=== PATIENT | female | born 1990 | race Caucasian/White ===

== ENCOUNTER 2020-03-15 00:38 | Emergency (ER) | payer OTHER, MEDICAID, SELFPAY ==
[2020-03-15 00:54] VITALS: BP 185/91; PULSE 96; RESP 18; TEMP 36.8; O2SAT 98; BMI 26.6
[2020-03-15] MEDS: SODIUM CHLORIDE 0.9% 1,000 ML 1000 ML IV (01:24)
[2020-03-15] MEDS: diphenhydrAMINE 50 MG/ML VIAL 25 MG IV (01:25)
[2020-03-15] MEDS: KETOROLAC 60 MG/2 ML VIAL 15 MG IV (01:30)
[2020-03-15] MEDS: DEXAMETHASONE 10 MG/ML VIAL IV (01:32)
[2020-03-15] MEDS: METOCLOPRAMIDE 10 MG/2 ML INJ IV (01:40)
--- NOTE | 2020-03-15 01:55 | ED_ITS ---
HPI - Headache General Chief Complaint: Headache Stated Complaint: migraine since yesterday Time Seen by Provider: 03/15/20 00:40 Source: family Mode of arrival: Ambulatory Limitations: no limitations History of Present Illness HPI Narrative: 29F nonsmoker with history of migraines presents with her mother and a chief complaint of a migraine since this afternoon with associated nausea. She states is very similar to prior migraines and she likely would not be here if she had access to her Imitrex which she normally takes. She denies any injury nor recent fever or chills. She is nauseated but denies vomiting. She states that she has minimal worsening with bright lights and loud noise. She denies any focal neurologic problems such as numbness, tingling or weakness MD Complaint: migraine Onset (ago): hour(s) Onset description: gradual Location: left Severity: moderate Quality: aching and throbbing Relieving factors: nothing Context: occurred at rest Associated symptoms: nausea Treatments prior to arrival: none Related Data Allergies Allergy/AdvReac Type Severity Reaction Status Date / Time Allergy Mild rash Uncoded 01/16/18 12:29 Review of Systems Constitutional Constitutional: Denies chills, Denies fatigue, Denies fever(s), Denies frequent falls, Reports headache(s), Denies lethargy and Denies weakness Eyes Eyes: Denies change in vision, Denies eye discharge, Denies irritation and Denies loss of vision ENT Ears, Nose, Mouth, and Throat: Denies change in voice, Denies dizziness, Reports headache(s), Denies neck pain, Denies sore throat and Denies throat swelling Cardiovascular Cardiovascular: Denies chest pain, Denies irregular heart rhythm, Denies lightheadedness, Denies palpitations, Denies dyspnea, Denies dyspnea on exertion and Denies orthopnea Respiratory Respiratory: Denies cough, Denies dyspnea, Denies dyspnea on exertion and Denies wheezing Gastrointestinal Gastrointestinal: Denies abdominal pain, Denies change in bowel habits, Denies diarrhea, Denies nausea and Denies vomiting Musculoskeletal Musculoskeletal: Denies neck pain and Denies numbness Integumentary/Breasts Skin/Breast: Denies pruritus, Denies erythema, Denies rash and Denies wounds Neurologic Neurologic: Denies behavioral changes, Denies confusion, Denies dizziness, Denies frequent falls, Reports headache(s), Denies loss of vision, Denies numbness and Denies weakness Psychiatric Psychiatric: Denies anxiety, Denies behavioral changes, Denies confusion, Denies depression, Denies homicidal ideation and Denies suicidal ideation Endocrine Endocrine: Denies fatigue, Denies flushing and Denies palpitations Hematologic/Lymphatic Hematologic/Lymphatic: Denies easy bruising Allergic/Immunologic Allergic/Immunologic: Denies urticaria, Denies throat swelling and Denies wheezing Patient History Social History Smoking Status: Never smoker Smoking Status: Never smoker alcohol intake frequency: 0-2 drinks per day Substance Use Type: does not use Exam Narrative Exam Narrative: GENERAL: [29] year old patient appears stated age. Well- nourished, well-developed patient, in mild distress. HEAD: Atraumatic. Normocephalic. EYES: Pupils equal round and reactive. Extraocular motions intact. No scleral icterus. No injection or drainage. ENT: Nose without bleeding, purulent drainage. Throat without erythema, tonsillar hypertrophy or exudate. Airway patent. NECK: Trachea midline. Non tender CARDIOVASCULAR: Regular rate and rhythm without murmurs, gallops, or rubs. RESPIRATORY: Clear to auscultation. Breath sounds equal bilaterally. No wheezes, rales, or rhonchi. GASTROINTESTINAL: Abdomen soft, non-tender, nondistended. EXTREMITIES: No edema or joint tenderness. BACK: Nontender without deformity or crepitance. No flank tenderness. NEURO: AOx3. SKIN: No rash or erythema of visible areas NIH Stroke Scale 1a. LOC: Patient is alert and keenly responsive (0) 1b. LOC Questions: Patient answers both LOC questions accurately (0) 1c. LOC Commands: Patient performs both tasks correctly (0) 2. Best Gaze: Normal (0) 3. Visual: No visual loss (0) 4. Facial palsy: Normal symmetrical movements (0) 5. Motor arm: No drift (0) 6. Motor leg: No drift (0) 7. Limb ataxia: Absent (0) 8. Sensory: Normal (0) 9. Best language: No aphasia; normal (0) 10. Dysarthria: Normal (0) 11. Extinction and inattention: No abnormality (0) NIHSS: 0 Initial Vital Signs Initial Vital Signs: Vital Signs Temperature 98.2 F 03/15/20 00:54 Pulse Rate 96 H 03/15/20 00:54 Respiratory Rate 18 03/15/20 00:54 Blood Pressure 185/91 H 03/15/20 00:54 Pulse Oximetry 98 03/15/20 00:54 Course Course Course Narrative: Significant improvement in symptoms with above-stated thera piem[place]e Orders Ordered: Discontinued Medications Dexamethasone (Decadron) 10 mg IV NOW ONE Stop: 03/15/20 01:19 Last Admin: 03/15/20 01:32 Dose: 10 mg Documented by: [facility] Diphenhydramine HCl (Benadryl) 25 mg IV NOW ONE Stop: 03/15/20 01:19 Last Admin: 03/15/20 01:25 Dose: 25 mg Documented by: [facility] Sodium Chloride (Normal Saline 0.9%) 1,000 mls @ 1,000 mls/hr IV BOLUS ONE Stop: 03/15/20 02:17 Last Infusion: 03/15/20 02:29 Dose: 0 mls/hr Documented by: Admin: 03/15/20 01:24 Dose: 1,000 mls/hr Documented by: [facility] Ketorolac Tromethamine (Toradol) 15 mg IV NOW ONE Stop: 03/15/20 01:19 Last Admin: 03/15/20 01:30 Dose: 15 mg Documented by: [facility] Metoclopramide HCl (Reglan) 10 mg IV NOW ONE Stop: 03/15/20 01:19 Last Admin: 03/15/20 01:40 Dose: 10 mg Documented by: [facility] Vital Signs Vital signs: Vital Signs - 8 hr 03/15/20 00:54 Temperature 98.2 F Pulse Rate 96 H Respiratory Rate 18 Blood Pressure 185/91 H Pulse Oximetry 98 Discharge Plan Departure Patient Disposition: Home Clinical Impression: Migraine Qualifiers: Migraine type: unspecified Intractability: not intractable Discharge Date/Time: 03/15/20 02:39 Instructions: DI for Migraine Activity Restrictions/Additional Instructions: *You have been diagnosed with [acute migraine headache] *What to do: *Take medications as directed *Follow up with your primary care provider in 2-3 days, call for an appointment. Let them know you were seen in the Emergency Department and that we ask that you be seen in follow up *Return to ER if you should have any new, worsening or concerning symptoms
[2020-03-15 02:37] VITALS: BP 138/90; PULSE 89; RESP 15; O2SAT 100
== END 2020-03-15 02:39 | disposition home or self-care (01) ==
PROVIDERS: Emergency Provider Emergency Medicine
DX: G43.909 Migraine, unspecified, not intractable, without status migrainosus (principal)
CPT/HCPCS: 36415; 96361; 96374; 96375; 99284; J1100; J1200; J1885; J2765

== ENCOUNTER 2023-08-24 14:40 | Emergency (ER) | payer OTHER, MEDICAID, SELFPAY ==
[2023-08-24 14:43] VITALS: BP 157/92; PULSE 107; RESP 16; TEMP 36.7; O2SAT 100; BMI 29.7
[2023-08-24 15:26] LABS: Add Manual Diff / Slide Review NO; Basophils Absolute Auto 100 /uL (0-100); Eosinophils Absolute Auto 0 /uL (0-450); Eosinophils Percent Auto 0.1 % (2-4); Hematocrit 38.7 % (36-46); Hemoglobin 13.3 g/dL (12.0-16.0); Lymphocytes Absolute Auto 2700 /uL (1100-4500); Lymphocytes Percent Auto 25.1 % (25-40); Mean Corpuscular HGB Conc 34.5 % (30-36); Mean Corpuscular Hemoglobin 29.3 PG (26-34); Mean Corpuscular Volume 84.8 fL (80-100); Monocytes Absolute Auto 800 /uL (0-900); Monocytes Percent Auto 7.6 % (3-14); Neutrophils Absolute Auto 7200 /uL (1500-7000); Neutrophils Percent Auto 66.2 % (50-75); Platelet Count 394 X10^3/uL (150-400); Red Blood Cell Count 4.56 X10^6/uL (4.0-5.2); Red Cell Distribution Width 14.7 % (11.6-14.8); White Blood Cell Count 10.9 X10^3/uL (4.5-11.0)
[2023-08-24 15:35] LABS: Acetaminophen < 10 ug/mL (10-30); Alanine Aminotransferase 32 IU/L (<35); Albumin 4.3 g/dL (3.5-5.0); Albumin Globulin Ratio 1.1 (1.0-2.8); Alkaline Phosphatase 75 U/L (38-126); Aspartate Aminotransferase 50 IU/L (14-36); BUN Creatinine Ratio 14.3 (6-22); Bilirubin Total 0.6 mg/dL (0.2-1.3); Blood Urea Nitrogen 10 mg/dL (7-17); Calcium 9.2 mg/dL (8.4-10.2); Carbon Dioxide 17 mmol/L (22-32); Chloride 104 mmol/L (98-107); Estimated Glomerular Filt Rate > 60 mL/min (>60); Ethanol (ETOH) < 10 mg/dL; Globulin 3.8 g/dL (1.7-4.1); Glucose 97 mg/dL (70-100); HEMOLYSIS < 15 (0-50); Potassium 3.2 mmol/L (3.4-5.1); Salicylate < 1.0 mg/dL (<20); Sodium 134 mmol/L (137-145); Total Protein 8.1 g/dL (6.3-8.2)
[2023-08-24 15:35] LABS: Bacteria Urine Occasional (0-1); RBC Urine None Seen (0-5/HPF); Squamous Epithelial Cell Urine 5-10 /HPF (0-5/HPF); WBC Urine 0-1/HPF (0-5/HPF)
[2023-08-24 15:36] LABS: Culture Indicated Urine Cult Not Indicated; Mucus Urine 1+ (Negative)
[2023-08-24 15:37] LABS: Ur Creatinine Normal (Normal); Ur Specific Gravity Normal (Normal); Urine pH Normal (Normal)
[2023-08-24 15:38] LABS: UR Morphine/Opiate cutoff 300 Negative (Negative); Urine Amphetamines Negative (Negative); Urine Barbiturates Negative (Negative); Urine Benzodiazepines Negative (Negative); Urine Cocaine Negative (Negative); Urine MDMA Negative (Negative); Urine Methadone Negative (Negative); Urine Methamphetamines Negative (Negative); Urine Oxycodone Negative (Negative); Urine Phencyclidine Negative (Negative); Urine Tetrahydrocannabinol Negative (Negative); Urine Tricyclic Antidepressant Negative (Negative)
[2023-08-24 15:51] LABS: Free T4, Direct Thyroxine 1.66 ng/dL (0.78-2.19)
[2023-08-24 16:05] LABS: Thyroid Stimulating Hormone 0.503 uIU/mL (0.47-4.68)
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
--- NOTE | 2023-08-24 18:14 | PC.NURSE ---
Patient changed her mind about going to a behavioural health facility therefore RN did not swab for Covid.
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
== END 2023-08-24 18:14 | disposition home or self-care (01) ==
PROVIDERS: Emergency Medicine; Emergency Provider Physician Assistant
DX: F41.8 Other specified anxiety disorders (principal)
CPT/HCPCS: 36415; 80053; 80305; 80320; 80329; 81003; 81015; 81025; 84439; 84443; 85025; 99283; G0480

== ENCOUNTER 2023-08-25 14:36 | Emergency (ER) | payer OTHER, MEDICAID, SELFPAY ==
--- NOTE | 2023-08-25 14:50 | PC.NURSE ---
parents at bedside per patient request
[2023-08-25 14:52] VITALS: BP 144/98; PULSE 108; RESP 17; TEMP 36.6; O2SAT 97; BMI 29.7
--- NOTE | 2023-08-25 14:52 | ED_ITS ---
HPI - Anxiety General Chief Complaint: Anxiety Stated Complaint: severe anxiety, not feeling safe at home Time Seen by Provider: 08/25/23 14:39 History of Present Illness HPI narrative: This is a 33-year-old female presents emergency department due to increased anxiety. States that she is no active SI or HI and no plans for any kind of self-harm. She states she was ?just worried I might hurt myself?. She states she is increased anxiety that ?builds up?. She took the trazodone that she was prescribed yesterday last night which did help her sleep but she still feels the increased anxiety. She also started taking the citalopram she was recommended state by the provider seen in the ED yesterday. She denies any auditory visual hallucinations,, auditory hallucinations, or any physical symptoms Related Data Home Medications Medication Instructions Recorded Confirmed citalopram 20 mg tablet 40 mg PO DAILY 08/25/23 08/25/23 drospirenone 3 mg-ethinyl 1 tab PO DAILY 08/25/23 08/25/23 estradiol 0.03 mg tablet sumatriptan succinate 50 mg tablet 50 mg PO QD-BID PRN migraine 08/25/23 08/25/23 trazodone 50 mg tablet 100 mg PO BEDTIME PRN insomnia 08/25/23 08/25/23 Previous Rx's Medication Instructions Recorded lorazepam 2 mg tablet (Ativan) 2 mg PO DAILY PRN anxiety #5 tabs 08/25/23 Allergies Allergy/AdvReac Type Severity Reaction Status Date / Time gluten Allergy Intermediate Gastrointestinal Verified 08/25/23 16:56 Upset Sulfa (Sulfonamide Allergy Mild Rash Verified 08/25/23 15:43 Antibiotics) Review of Systems Review of Systems Narrative: GENERAL: Denies chills, fatigue, malaise, fever, sweats. HEENT: Denies sinus pain, ear pain, sore throat, difficulty swallowing, dizziness. RESPIRATORY: Denies dyspnea, cough, wheezing, hemoptysis, sputum. CARDIOVASCULAR: Denies chest pain, palpitations, orthopnea, edema, GASTROINTESTINAL: Denies nausea, vomiting, abdominal pain, diarrhea, constipation, melena. : Denies dysuria, frequency, incontinence, hematuria, urinary retention. MUSCULOSKELETAL: denies weakness, joint pain, or bony pain SKIN: Denies rash, skin lesions, or other NEUROLOGIC: Denies weakness, headache, numbness, change in speech, confusion, seizures, incoordination. PSYCHIATRIC: Reports increased anxiety 12 point review of systems is negative except for those stated above Patient History Social History Smoking Status: Never smoker Smoking Status: Never smoker alcohol intake frequency: 0-2 drinks per day Substance Use Type: does not use Exam Narrative Exam Narrative: GENERAL: Well-developed patient, in mild distress. HEAD: Atraumatic. Normocephalic. EYES: Pupils equal round and reactive. Extraocular motions intact. No scleral icterus. No injection or drainage. ENT: Nose without bleeding, purulent drainage. Throat without erythema, tonsillar hypertrophy or exudate. Airway patent. NECK: Trachea midline. Non tender CARDIOVASCULAR: Regular rate and rhythm without murmurs, gallops, or rubs. RESPIRATORY: Clear to auscultation. Breath sounds equal bilaterally. No wheezes, rales, or rhonchi. GASTROINTESTINAL: Abdomen soft, non-tender, nondistended. EXTREMITIES: No edema or joint tenderness. BACK: Nontender without deformity or crepitance. No flank tenderness. NEURO: AOx3. SKIN: No rash or erythema of visible areas Initial Vital Signs Initial Vital Signs: Vital Signs Temperature 98 F 08/25/23 14:52 Pulse Rate 108 H 08/25/23 14:52 Respiratory Rate 17 08/25/23 14:52 Blood Pressure 144/98 H 08/25/23 14:52 Pulse Oximetry 97 08/25/23 14:52 Oxygen Delivery Method Room Air 08/25/23 14:52 Course Orders Ordered: ED Orders 08/25/23 15:14 Ictotest Urine Stat Urine Culture Stat Urine Drug Screen, Rapid Stat Urine Microscopic Stat 08/25/23 15:26 Consult to LASER TECHNICIAN - Registered Account Administrator Stat 08/25/23 15:27 Complete Blood Count AUTO DIFF Stat Comprehensive Metabolic Panel Stat Ethanol (ETOH) Stat TSH w/ Reflex to FT4 Stat 08/25/23 15:35 COVID19 -Nasal RAPID Stat Discontinued Medications Lorazepam (Lorazepam 0.5 Mg Tablet) 2 mg PO NOW ONE Stop: 08/25/23 15:31 Last Admin: 08/25/23 15:36 Dose: 2 mg Documented By: KANCHAN Potassium Chloride (Potassium Chloride 20 Meq/15 Ml Udc) 40 meq PO NOW ONE Stop: 08/25/23 16:15 Last Admin: 08/25/23 16:20 Dose: 40 meq Documented By: KF Vital Signs Vital signs: Vital Signs - 8 hr 08/25/23 14:52 08/25/23 16:11 08/25/23 16:23 Temperature 98 F Pulse Rate 108 H 108 H 108 H Respiratory Rate 17 18 Blood Pressure 144/98 H 156/100 H Pulse Oximetry 97 99 Oxygen Delivery Method Room Air Room Air 08/25/23 17:31 Temperature 98.5 F Pulse Rate 110 H Respiratory Rate 16 Blood Pressure 162/68 H Pulse Oximetry 94 Oxygen Delivery Method Room Air MDM - Anxiety Lab Data 08/25/23 15:27 08/25/23 15:27 Labs: Lab Results 08/25/23 08/25/23 08/25/23 Range/Units 15:14 15:27 15:35 WBC 10.1 (4.5-11.0) X10^3/uL RBC 4.61 (4.0-5.2) X10^6/uL Hgb 13.4 (12.0-16.0) g/dL Hct 38.9 (36-46) % MCV 84.2 (80-100) fL MCH 29.0 (26-34) PG MCHC 34.5 (30-36) % RDW 14.6 (11.6-14.8) % Plt Count 392 (150-400) X10^3/uL Neut % (Auto) 66.8 (50-75) % Lymph % (Auto) 25.8 (25-40) % [place]y % (Auto) 6.8 (3-14) % Eos % (Auto) 0.2 L (2-4) % Baso % (Auto) 0.4 (0-2) % Neut # (Auto) 6800 (3132-4450) /uL Lymph # (Auto) 2600 (5717-5041) /uL [place]y # (Auto) 700 (0-900) /uL Eos # (Auto) 0 (0-450) /uL Baso # (Auto) 0 (0-100) /uL Sodium 135 L (137-145) mmol/L Potassium 3.2 L (3.4-5.1) mmol/L Chloride 104 (98-107) mmol/L Carbon Dioxide 19 L (22-32) mmol/L BUN 10 (7-17) mg/dL Creatinine 0.73 (0.52-1.04) mg/dL Estimated GFR > 60 (>60) mL/min BUN/Creatinine Ratio 13.7 (6-22) Glucose 103 H (70-100) mg/dL Calcium 9.3 (8.4-10.2) mg/dL Total Bilirubin 0.8 (0.2-1.3) mg/dL AST 62 H (14-36) IU/L ALT 59 H (<35) IU/L Alkaline Phosphatase 85 (38-126) U/L Total Protein 8.2 (6.3-8.2) g/dL Albumin 4.3 (3.5-5.0) g/dL Globulin 3.9 (1.7-4.1) g/dL Albumin/Globulin Ratio 1.1 (1.0-2.8) TSH 0.55 (0.47-4.68) uIU/mL Ur Bilirubin Confirm Negative (Negative) Urine RBC None seen (0-5/HPF) Urine WBC 0-1/hpf (0-5/HPF) Ur Squamous Epith Cells None seen (0-5/HPF) Urine Bacteria None seen (None) Urine Mucus 1+ H (Negative) U Opiates 300ng/mL cut Negative (Negative) Ur Oxycodone Screen Negative (Negative) Urine Methadone Screen Negative (Negative) Ur Barbiturates Screen Negative (Negative) U Tricyclic Antidepress Negative (Negative) Ur Phencyclidine Scrn Negative (Negative) Ur Amphetamines Screen Negative (Negative) U Methamphetamines Scrn Negative (Negative) Ur MDMA Scrn (Ecstasy) Negative (Negative) U Benzodiazepines Scrn Negative (Negative) Urine Cocaine Screen Negative (Negative) U Marijuana (THC) Screen Negative (Negative) Ethyl Alcohol < 10 ( - 10) mg/dL SARS-CoV-2 (PCR) Negative (Negative) Point of Care Testing Test Results Negative Urine Dip Bedside Urine Glucose Negative Bedside Urine Bilirubin + 1 Bedside Urine Ketone +++ 80 Urine Specific [place] 1.020 Bedside Urine Occult Blood - Negative Bedside Urine pH 6.0 Bedside Urine Protein + 30 Bedside Urine Urobilinogen +/- 1mg Bedside Urine Nitrite - Negative Bedside Urine Leukocytes +/- 15 Esterase MDM Narrative Medical decision making narrative: MDM * differential diagnosis includes but not limited to anxiety, depression, SI, HI * Prior records reviewed: Patient was seen here yesterday as well. History of depression anxiety. Seen here yesterday for an acute exacerbation of anxiety. Patient was evaluated by social work. Initially the patient requested inpatient treatment and social work was activating inpatient protocol. Patient was offered the plan to go home with trazodone to see how she felt in the morning and elected to choose that plan. Patient was recommended to start her 20 mg of citalopram which she was previously prescribed. Medical workup yesterday was unremarkable. Patient was prescribed trazodone to take at bedtime to help her sleep. * My lab interpretation: Urine drug screen negative. CBC unremarkable. Very mild hypokalemia of 3.2. Very mild hyponatremia but patient does not report any symptoms concerning for acute hyponatremia. Ethanol with a normal limits. COVID negative. TSH within normal limits. * My imgaing interpretation: None obtained * Clinical Decision Rules/Scores evaluated: None * Independent discussions with: None ED Course: This is a 33-year-old female presents emergency department due to worsening anxiety. She was seen yesterday in the emergency department as noted in the prior records review section above. She states that she tried the trazodone prescribed yesterday but did not experience any significant relief of her anxiety. She was requesting inpatient treatment. Her lab work today was essentially unremarkable other than mild hyponatremia which was supplemented with p.o. potassium. Patient will be medically cleared for voluntary admission. Call us if it made to [facility] as well as [facility] in [place] as mother states that she called [facility] and was told there was bed availability. Our microfilm duplicating unit supervisor spoke with both [facility] as well as [facility] and was told that there would be no beds today but possibly tomorrow. This was discussed with the patient who elected to be discharged home but requested a short prescription for Ativan as it helped her here in the emergency department. A very small prescription will be prescribed for the patient until she was able to follow up in person at [facility] or any other facility the family chooses to go to. Patient expressed no SI or HI prior to discharge. Shared Decision Making: Discussed plan with patient who is comfortable with the plan. Social Considerations: None Disposition: Discharged home Discharge Plan Departure Patient Disposition: Home Clinical Impression: Acute anxiety Instructions: DI for Anxiety -- Adult Activity Restrictions/Additional Instructions: Thank you for coming to the [facility] Emergency Department today. I am glad that you are not having any active thoughts of hurting herself or anyone else. Please take the medications you have already prescribed. You may use the Ativan prescribed very sparingly until you are able to follow up with the mental health facility tomorrow or on Sunday. I hope you feel better soon. Please follow up with your primary care provider within a week if your symptoms continue. If you do not have a primary care provider please contact the [facility] Resource line at [phone]. They will ask some questions about your medical history and help you get set up with a provider in the community. Prescriptions: New lorazepam [Ativan] 2 mg tablet 2 mg PO DAILY PRN (Reason: anxiety) Qty: 5 0RF No Action citalopram 20 mg tablet 40 mg PO DAILY trazodone 50 mg tablet 100 mg PO BEDTIME MDD 150 mg PRN (Reason: insomnia) Rx Instructions: Two tablets before bedtime tonight and 1-2 at bedtime thereafter. drospirenone-ethinyl estradiol 3-0.03 mg tablet 1 tab PO DAILY sumatriptan succinate 50 mg tablet 50 mg PO QD-BID PRN (Reason: migraine) Stand Alone Forms: Patient Portal/API
--- NOTE | 2023-08-25 15:29 | PC.NURSE ---
pt requesting medication; provider aware; at bedside
[2023-08-25] MEDS: LORazepam 0.5 MG TABLET 2 MG PO (15:36)
[2023-08-25 15:38] LABS: Ictotest Urine Negative (Negative); UR Morphine/Opiate cutoff 300 Negative (Negative); Ur Creatinine Normal (Normal); Ur Specific Gravity Normal (Normal); Urine Amphetamines Negative (Negative); Urine Barbiturates Negative (Negative); Urine Benzodiazepines Negative (Negative); Urine Cocaine Negative (Negative); Urine MDMA Negative (Negative); Urine Methadone Negative (Negative); Urine Methamphetamines Negative (Negative); Urine Oxycodone Negative (Negative); Urine Phencyclidine Negative (Negative); Urine Tetrahydrocannabinol Negative (Negative); Urine Tricyclic Antidepressant Negative (Negative); Urine pH Normal (Normal)
[2023-08-25 15:40] LABS: Bacteria Urine None Seen; Mucus Urine 1+ (Negative); RBC Urine None Seen (0-5/HPF); Squamous Epithelial Cell Urine None Seen (0-5/HPF); WBC Urine 0-1/HPF (0-5/HPF)
[2023-08-25 15:49] LABS: Alanine Aminotransferase 59 IU/L (<35); Albumin 4.3 g/dL (3.5-5.0); Albumin Globulin Ratio 1.1 (1.0-2.8); Alkaline Phosphatase 85 U/L (38-126); Aspartate Aminotransferase 62 IU/L (14-36); BUN Creatinine Ratio 13.7 (6-22); Bilirubin Total 0.8 mg/dL (0.2-1.3); Blood Urea Nitrogen 10 mg/dL (7-17); Calcium 9.3 mg/dL (8.4-10.2); Carbon Dioxide 19 mmol/L (22-32); Chloride 104 mmol/L (98-107); Estimated Glomerular Filt Rate > 60 mL/min (>60); Ethanol (ETOH) < 10 mg/dL; Globulin 3.9 g/dL (1.7-4.1); Glucose 103 mg/dL (70-100); HEMOLYSIS < 15 (0-50); Potassium 3.2 mmol/L (3.4-5.1); Sodium 135 mmol/L (137-145); Total Protein 8.2 g/dL (6.3-8.2)
[2023-08-25 15:58] LABS: Add Manual Diff / Slide Review NO; Basophils Absolute Auto 0 /uL (0-100); Basophils Percent Auto 0.4 % (0-2); Eosinophils Absolute Auto 0 /uL (0-450); Eosinophils Percent Auto 0.2 % (2-4); Hematocrit 38.9 % (36-46); Hemoglobin 13.4 g/dL (12.0-16.0); Lymphocytes Absolute Auto 2600 /uL (1100-4500); Lymphocytes Percent Auto 25.8 % (25-40); Mean Corpuscular HGB Conc 34.5 % (30-36); Mean Corpuscular Volume 84.2 fL (80-100); Monocytes Absolute Auto 700 /uL (0-900); Monocytes Percent Auto 6.8 % (3-14); Neutrophils Absolute Auto 6800 /uL (1500-7000); Neutrophils Percent Auto 66.8 % (50-75); Platelet Count 392 X10^3/uL (150-400); Red Blood Cell Count 4.61 X10^6/uL (4.0-5.2); Red Cell Distribution Width 14.6 % (11.6-14.8); White Blood Cell Count 10.1 X10^3/uL (4.5-11.0)
[2023-08-25 16:01] LABS: COVID19 -Nasal RAPID Negative (Negative)
[2023-08-25 16:11] VITALS: PULSE 108
[2023-08-25] MEDS: POTASSIUM CHLORIDE 20 MEQ/15 ML UDC 40 MEQ PO (16:20)
[2023-08-25 16:23] VITALS: BP 156/100; PULSE 108; RESP 18; O2SAT 99
[2023-08-25 16:49] LABS: TSH w/ Reflex to FT4 0.55 uIU/mL (0.47-4.68)
[2023-08-25 17:31] VITALS: BP 162/68; PULSE 110; RESP 16; TEMP 36.9; O2SAT 94
== END 2023-08-25 17:34 | disposition home or self-care (01) ==
PROVIDERS: Emergency Provider Physician Assistant Medical
DX: F41.9 Anxiety disorder, unspecified (principal); Z20.822 Contact with and (suspected) exposure to COVID-19
CPT/HCPCS: 36415; 80053; 80305; 80320; 81003; 81015; 81025; 84443; 85025; 87086; 87635; 99283; C9803